=== PATIENT | male | born 1990 | race Caucasian/White ===

== ENCOUNTER 2016-09-25 21:15 | Emergency (ER) | payer BC ==
[~2016-09-25] VITALS: Ht 188 cm; Wt 64.4 kg
--- NOTE | 2016-09-25 21:27 | PHYS DOC ---
Past Medical History Past Medical History: A-Fib Additional Past Medical Histor: mitral regurgitation and questionable history of atrial fibrillation patien Past Medical History Negative stress test 3 years ago Smoking: Cigarettes Drug Use: None Social History Narrative: he drank alcohol at a concert prior to arrival here Adult General HPI HPI Patient is a 25 year old male who presents with transported by EMS from a local concert had been drinking heavily denies any drug use presents with complaints of left-sided substernal chest discomfort that started prior to arrival no radiation of pain down the arm or neck no abdominal pain and nausea vomiting or diarrhea denies dyspnea. Sharp but not pleuritic. Moderate severity. Patient reports possible history of irregular heartbeat that he stay on the details he does take blood pressure medication and has a history of mitral regurgitation. The pain is not tearing does not go through to between the shoulder blades denies any leg pain or swelling. Pain is nonexertional. Review of Systems Review of Systems Constitutional: Denies fever or chills [] Eyes: Denies change in visual acuity, redness, or eye pain [] HENT: Denies nasal congestion or sore throat [] Respiratory: Denies cough or shortness of breath [] Cardiovascular: No additional information not addressed in HPI [] GI: Denies abdominal pain, nausea, vomiting, bloody stools or diarrhea [] : Denies dysuria or hematuria [] Musculoskeletal: Denies back pain or joint pain [] Integument: Denies rash or skin lesions [] Neurologic: Denies headache, focal weakness or sensory changes [] Endocrine: Denies polyuria or polydipsia [] Negative except as mentioned in the history of present illness Family History Family History Denies family history of serious cardiac disease Current Medications Current Medications Current Medications Medications (Trade) Dose Ordered Sig/Natasha Start Time Stop Time Status Last Admin Dose Admin Ketorolac Tromethamine (Toradol) 30 mg 1X ONCE 09/25/16 22:15 09/25/16 22:16 DC 09/25/16 21:59 30 MG Allergies Allergies Allergies Coded Allergies Type Severity Reaction Last Updated Verified No Known Drug Allergies 09/25/16 No Physical Exam Physical Exam Constitutional: Well developed, well nourished, no acute distress, non-toxic appearance. [] HENT: Normocephalic, atraumatic, bilateral external ears normal, oropharynx moist, no oral exudates, nose normal. [] Eyes: PERRLA, EOMI, conjunctiva normal, no discharge. [] Neck: Normal range of motion, no tenderness, supple, no stridor. [] Cardiovascular:Heart rate regular rhythm, no murmur [] Lungs & Thorax: Bilateral breath sounds clear to auscultation [] Abdomen: Bowel sounds normal, soft, no tenderness, no masses, no pulsatile masses. [] Skin: Warm, dry, no erythema, no rash. [] Back: No tenderness, no CVA tenderness. [] Extremities: No tenderness, no cyanosis, no clubbing, ROM intact, no edema. [] Neurologic: Alert and oriented X 3, normal motor function, normal sensory function, no focal deficits noted. [] Psychologic: Affect normal, judgement normal, mood normal. [] Current Patient Data Vital Signs Vital Signs Date Time Temp Pulse Resp B/P (MAP) Pulse Ox O2 Delivery O2 Flow Rate FiO2 09/25/16 22:30 98 16 108/57 (74) 95 Room Air 09/25/16 21:24 98.1 98.1 Lab Values Laboratory Tests Test 09/25/16 19:24 09/25/16 22:42 White Blood Count 6.0 x10^3/uL (4.0-11.0) Red Blood Count 4.60 x10^6/uL (4.30-5.70) Hemoglobin 15.0 g/dL (13.0-17.5) Hematocrit 44.5 % (39.0-53.0) Mean Corpuscular Volume 97 fL (79-100) Mean Corpuscular Hemoglobin 33 pg (25-35) Mean Corpuscular Hemoglobin Concent 34 g/dL (31-37) Red Cell Distribution Width 13.2 % (11.5-14.5) Platelet Count 239 x10^3/uL (140-400) Neutrophils (%) (Auto) 53 % (31-73) Lymphocytes (%) (Auto) 31 % (24-48) Monocytes (%) (Auto) 12 % (0-9) H Eosinophils (%) (Auto) 4 % (0-3) H Basophils (%) (Auto) 1 % (0-3) Neutrophils # (Auto) 3.1 x10^3uL (1.8-7.7) Lymphocytes # (Auto) 1.9 x10^3/uL (1.0-4.8) Monocytes # (Auto) 0.7 x10^3/uL (0.0-1.1) Eosinophils # (Auto) 0.2 x10^3/uL (0.0-0.7) Basophils # (Auto) 0.0 x10^3/uL (0.0-0.2) Sodium Level 142 mmol/L (136-145) Potassium Level 3.2 mmol/L (3.5-5.1) L Chloride Level 104 mmol/L (98-107) Carbon Dioxide Level 24 mmol/L (21-32) Anion Gap 14 (6-14) Blood Urea Nitrogen 7 mg/dL (8-26) L Creatinine 0.7 mg/dL (0.7-1.3) Estimated GFR (Cockcroft-Gault) 138.6 BUN/Creatinine Ratio 10 (6-20) Glucose Level 123 mg/dL (70-99) H Calcium Level 9.0 mg/dL (8.5-10.1) Total Bilirubin 0.2 mg/dL (0.2-1.0) Aspartate Amino Transferase (AST) 60 U/L (15-37) H Alanine Aminotransferase (ALT) 104 U/L (16-63) H Alkaline Phosphatase 74 U/L (46-116) Troponin I Quantitative < 0.017 ng/mL (0.000-0.055) Total Protein 7.2 g/dL (6.4-8.2) Albumin 4.2 g/dL (3.4-5.0) Albumin/Globulin Ratio 1.4 (1.0-1.7) Urine Opiates Screen Neg (NEG) Urine Methadone Screen Neg (NEG) Urine Barbiturates Neg (NEG) Urine Phencyclidine Screen Neg (NEG) Urine Amphetamine/Methamphetamine Neg (NEG) Urine Benzodiazepines Screen Neg (NEG) Urine Cocaine Screen Neg (NEG) Urine Cannabinoids Screen Neg (NEG) Urine Ethyl Alcohol Pos (NEG) Laboratory Tests 09/25/16 19:24 Laboratory Tests 09/25/16 19:24 EKG EKG EKG sinus rhythm rate of 82 no STEMI QTC normal time of interpretation by me is 2119 [] Radiology/Procedures Radiology/Procedures Chest x-ray negative for pneumothorax and no acute pathology seen my interpretation my review. Course & Med Decision Making Course & Med Decision Making Pertinent Labs and Imaging studies reviewed. (See chart for details)\ Labs were unremarkable chest x-ray unremarkable EKG unremarkable. 2242 hrs. reexamination patient is resting comfortably chest pain is improved and resolved. Blood pressure both arms were equal. Do not suspect pulmonary embolism or aortic dissection. [] Dragon Disclaimer Dragon Disclaimer This electronic medical record was generated, in whole or in part, using a voice recognition dictation system. Departure Departure Impression: Primary Impression: Acute chest pain Additional Impression: Alcohol intoxication Disposition: HOME, SELF-CARE Condition: IMPROVED Problem Qualifiers TIM MONROY MD September 25, 2016 21:27
[2016-09-25 21:43] LABS: BASO % 1 % (0-3); EOS % 4 % (0-3); HEMATOCRIT 44.5 % (39.0-53.0); LYMPH # 1.9 x10^3/uL (1.0-4.8); LYMPH % 31 % (24-48); MEAN CORPUSCULAR HEMOGLOBIN 33 pg (25-35); MEAN CORPUSCULAR HGB CONC 34 g/dL (31-37); MEAN CORPUSCULAR VOLUME 97 fL (79-100); MONO % 12 % (0-9); NEUT % 53 % (31-73); PLATELET COUNT 239 x10^3/uL (140-400); RED CELL DISTRIBUTION WIDTH 13.2 % (11.5-14.5)
[2016-09-25 21:54] LABS: CREATININE 0.7 mg/dL (0.7-1.3); GFR 138.6; POTASSIUM 3.2 mmol/L (3.5-5.1)
[2016-09-25 22:00] LABS: ALBUMIN 4.2 g/dL (3.4-5.0); ALBUMIN/GLOBULIN RATIO 1.4 (1.0-1.7); TOTAL BILIRUBIN 0.2 mg/dL (0.2-1.0); TOTAL PROTEIN 7.2 g/dL (6.4-8.2)
[2016-09-25] MEDS ORDERED: KETOROLAC TROMETHAMINE 30 MG/ML INJ. IV ONE (22:15)
[2016-09-25 23:21] LABS: BARBITURATES NEG (NEG); BENZODIAZEPINES NEG (NEG); CANNABINOIDS NEG (NEG); COCAINE NEG (NEG); METHADONE NEG (NEG); OPIATES NEG (NEG); PHENCYCLIDINE NEG (NEG)
[2016-09-25 23:30] VITALS: BP 104/57
--- NOTE | 2016-09-26 07:39 | EKG ---
[facility] [address] [place] [address] Test Date: 2016-09-25 Test Time: 21:19:08 Pat Name: OMKAR MORAN Department: Room: Gender: [employer]: : 1990 Requested By: TIM MONROY Order Number: [id number] Reading MD: Isa Daniels Measurements Intervals [place] Rate: 82 P: 41 MS: 158 QRS: 74 QRSD: 94 T: 79 QT: 344 QTc: 405 Interpretive Statements SINUS RHYTHM NORMAL EKG RI6.01 Unconfirmed report No previous ECG available for comparison Electronically Signed On 09-27-2016 15:47:35 CDT by Isa Daniels
--- NOTE | 2016-09-26 08:07 | RAD ---
EXAM: Chest, single view. HISTORY: Left-sided chest pain. COMPARISON: None. FINDINGS: A frontal view of the chest is obtained. There is no infiltrate, effusion or pneumothorax. The heart is normal in size. IMPRESSION: No acute pulmonary finding.
== END 2016-09-25 23:38 | disposition home or self-care (01) ==
LOC: ER 21:53
DX: R07.89 Other chest pain (principal); F10.129 Alcohol abuse with intoxication, unspecified; F17.210 Nicotine dependence, cigarettes, uncomplicated; I48.91 Unspecified atrial fibrillation
CPT/HCPCS: 36415; 51701; 71010; 80053; 80305; 84484; 85027; 93005; 96374; 99285; J1885; G0481